=== PATIENT | male | born 1985 | race Caucasian/White ===

== ENCOUNTER 2016-10-07 20:52 | Emergency (ER) | payer BC ==
[2016-10-07] MEDS ORDERED: CEPHALEXIN 500 MG CAPSULE PO STA (21:12)
--- NOTE | 2016-10-07 21:18 | Emergency Department Record ---
History of Present Illness - General Chief complaint: Abscess Stated complaint: RT FINGER SWELLED Time Seen by Provider: 10/07/16 21:12 Source: Patient Mode of Arrival: Ambulatory Limitations: No limitations - History of Present Illness Initial comments: 31 yo male presents with right index finger pain and swelling that has been ongoing for about one week. He has been doing to out door work and roughed up the area and exposed it to possibly contaminated water. No pus. No streaking. He is able to bend the finger through a full ROM. No FB concern by him MD complaint: Abscess/boil Onset/Timin -: Week(s) Location: R hand Consistency: Constant, Getting worse Improves with: None Worsens with: None Context: Other Treatments Prior to Arrival: None - Related Data Previous Rx's Medication Instructions Recorded Cephalexin [Keflex] 500 mg PO TID #21 cap 10/07/16 Allergies Allergy/AdvReac Type Severity Reaction Status Date / Time No Known Drug Allergies Allergy Verified 10/07/16 21:07 Travel Screening - Travel/Exposure Within Last 30 Days Have you traveled within the last 30 days?: No Review of Systems Constitutional: Denies: Chills, Fever, Weakness Eyes: Denies: Eye discharge ENT: Denies: Congestion, Throat pain Respiratory: Denies: Cough Cardiovascular: Denies: Chest pain, Palpitations, Syncope Endocrine: Denies: Fatigue Gastrointestinal: Denies: Abdominal pain, Diarrhea, Nausea, Vomiting Genitourinary: Denies: Dysuria, Frequency, Hematuria Musculoskeletal: Reports: As per HPI, Joint swelling, Neck pain. Denies: Arthralgia, Myalgia Skin: Reports: Change in color. Denies: Bruising Neurological: Denies: Headache Psychiatric: Denies: Anxiety Hematological/Lymphatic: Denies: Blood Clots, Easy bleeding, Easy bruising, Swollen glands Past Medical History - SOCIAL HISTORY Smoking Status: Never smoker Alcohol Use: None Drug Use: None - RESPIRATORY Hx Respiratory Disorders: No - CARDIOVASCULAR Hx Cardio Disorders: No - NEURO Hx Neuro Disorders: No - GI Hx GI Disorders: No - Hx Genitourinary Disorders: No - ENDOCRINE Hx Endocrine Disorders: No - MUSCULOSKELETAL Hx Musculoskeletal Disorders: No - PSYCH Hx Psych Problems: No - HEMATOLOGY/ONCOLOGY Hx Hematology/Oncology Disorders: No Family Medical History Any Significant Family History?: No Physical Exam - General General Appearance: Alert Limitations: No limitations - Head Head exam: Atraumatic - Eye Eye exam: Normal appearance - ENT ENT exam: Normal exam - Neck Neck exam: Normal inspection - Cardiovascular Cardiovascular Exam: Regular rate, Normal rhythm, Normal heart sounds Peripheral Pulses: 2+: Radial (R) - Rectal Rectal exam: Deferred - exam: Deferred - Extremities Extremities exam: Normal capillary refill. negative: Normal inspection Image of Finger Tip: 1 - soft tissue swelling of the ulnar side of the finger with likely small amount of fluctuance, mild eythema, no streaking. 2 - normal inspection, no swelling, firmness or signs of infection - Neurological Neurological exam: Alert, Oriented X3 - Psychiatric Psychiatric exam: Normal affect, Normal mood - Skin Skin exam: Erythema Course Vital Signs 10/07/16 21:02 Temperature 98.2 F Pulse Rate [ 80 Pulse Ox Probe] Respiratory 16 Rate Blood Pressure 114/64 [Right Arm] Pulse Ox 97 - Reevaluation(s) Reevaluation #1: I discussed recommendation for I and D of likely abscess He agrees Digital block Lidocaine 1% 4ml Betadine Prep Gentle lifting of the lateral finger skin margine up off the nail with expression of pus The area was open and irrigated until clear The patient tolerated it well We discussed home care and reasons to return/follow up 10/07/16 21:29 Disposition Disposition: Discharge Clinical Impression: Paronychia Qualifiers: Laterality: right Qualified Code(s): L03.011 - Cellulitis of right finger Disposition: Home, Self-Care Condition: (1) Good Instructions: Paronychia (ED) Additional Instructions: Perform a warm soak at least 2 times daily for about 10-15 minutes to encourage any drainage Keflex 3 times daily Return if worse, fever, streaking, or any new concerns. Prescriptions: Cephalexin [Keflex] 500 mg PO TID #21 cap Forms: Patient Portal Access Time of Disposition: 21:31
== END 2016-10-07 21:47 | disposition home or self-care (01) ==
LOC: ER 20:52
DX: L03.011 Cellulitis of right finger (principal)
CPT/HCPCS: 26010; 99283